=== PATIENT | female | born 1985 | race Two or more races ===

== ENCOUNTER 2018-07-19 13:59 | Emergency (ER) | payer MEDICAID, OTHER ==
[~2018-07-19] VITALS: Ht 160 cm; Wt 79.4 kg
[2018-07-19 14:23] VITALS: BP 128/83
[2018-07-19] MEDS ORDERED: IBUPROFEN 800 MG TAB PO ONE (16:15)
== END 2018-07-19 17:05 | disposition home or self-care (01) ==
LOC: ER 14:04
DX: S16.1XXA Strain of muscle, fascia and tendon at neck level, initial encounter (principal); S20.219A Contusion of unspecified front wall of thorax, initial encounter; V43.52XA Car driver injured in collision with other type car in traffic accident, initial encounter; Y93.89 Activity, other specified; Y92.488 Other paved roadways as the place of occurrence of the external cause; Y99.8 Other external cause status
CPT/HCPCS: 71046; 72040

== ENCOUNTER 2018-12-29 09:29 | Emergency (ER) | payer MEDICAID ==
[2018-12-29 09:36] VITALS: BP 112/70
[2018-12-29 10:33] LABS: Urine Bacteria NONE SEEN /hpf (None Seen); Urine Blood 1+ /uL (Negative); Urine Specific Gravity 1.019 (1.001-1.035); Urine WBC 2 /hpf (0 - 5)
== END 2018-12-29 12:28 | disposition left against medical advice (07) ==
LOC: ER 09:31
DX: R10.30 Lower abdominal pain, unspecified (principal); N93.9 Abnormal uterine and vaginal bleeding, unspecified; Z53.21 Procedure and treatment not carried out due to patient leaving prior to being seen by health care provider
CPT/HCPCS: 36415; 81001; 84702

== ENCOUNTER 2019-01-08 10:50 | Emergency (ER) | payer MEDICAID ==
[~2019-01-08] VITALS: Ht 157.5 cm; Wt 82.6 kg
[2019-01-08 11:51] LABS: Basophils # (auto) 0 uL; Basophils % (auto) 0.3 % (0.0-2.0); Eosinophils # (auto) 0.1 uL; Eosinophils % (auto) 2.4 % (0.0-7.0); Hematocrit 42.2 % (36.0-46.0); Lymphocytes # (auto) 1.9 uL; Lymphocytes % (auto) 32.3 % (10.0-50.0); Mean Corpuscular Hemoglobin 28.9 pg (28.0-32.0); Mean Corpuscular Hgb Conc. 33.2 g/dL (32.0-36.0); Mean Corpuscular Volume 87.1 fL (80.0-100.0); Monocytes # (auto) 0.3 uL; Monocytes % (auto) 4.9 % (0.0-12.0); Neutrophils # (auto) 3.5 uL; Neutrophils % (auto) 60.1 % (37.0-80.0); Nucleated Red Blood Cells % 0.1 %; Platelet Count (auto) 246 10^3/uL (140-450); Red Blood Cells 4.84 10^6/uL (4.0-5.20); Red Cell Distribution Width 13.3 % (11.8-14.3); White Blood Cell 5.8 10^3/uL (4.4-10.8)
[2019-01-08 12:08] LABS: Potassium 3.5 mmol/L (3.5-5.1)
[2019-01-08 12:15] LABS: Albumin 3.8 g/dL (3.4-5.0); BUN/Creatinine Ratio 14.9; Bilirubin, Total 0.3 mg/dL (0.2-1.0); Calcium 8.8 mg/dL (8.5-10.1); Total Protein 7.6 g/dL (6.4-8.2)
[2019-01-08 12:37] LABS: Urine Bacteria NONE SEEN /hpf (None Seen); Urine Blood 2+ /uL (Negative); Urine Specific Gravity 1.025 (1.001-1.035); Urine Sperm PRESENT /hpf (None Seen); Urine WBC 6 /hpf (0 - 5)
[2019-01-08] MEDS ORDERED: MORPHINE SULF INJ 2 MG/ML SYRINGE 1ML IV ONE (15:15)
[2019-01-08] MEDS ORDERED: ONDANSETRON HCL 4 MG/2 ML VIAL IV ONE (15:15)
[2019-01-08 16:48] VITALS: BP 110/61
== END 2019-01-08 17:17 | disposition home or self-care (01) ==
LOC: ER 10:56
DX: O03.9 Complete or unspecified spontaneous abortion without complication (principal); R79.89 Other specified abnormal findings of blood chemistry; Z3A.01 Less than 8 weeks gestation of pregnancy
CPT/HCPCS: 36415; 76801; 76817; 80053; 81001; 84702; 85025; 96374; 96375; 99284; J2270; J2405

== ENCOUNTER 2019-09-19 19:48 | Emergency (ER) | payer MEDICAID ==
[~2019-09-19] VITALS: Ht 160 cm; Wt 81.2 kg
[2019-09-19 20:42] LABS: Urine Bacteria FEW /hpf (None Seen); Urine Blood TRACE /uL (Negative); Urine Specific Gravity 1.018 (1.001-1.035); Urine WBC 2 /hpf (0 - 5)
[2019-09-19 22:43] LABS: Basophils # (auto) 0 10 ^3/uL (0-0.2); Basophils % (auto) 0.3 % (0.0-2.0); Eosinophils # (auto) 0.1 10 ^3/uL (0-0.8); Eosinophils % (auto) 1.4 % (0.0-7.0); Hematocrit 39.2 % (36.0-46.0); Hemoglobin 13.2 g/dL (12.2-16.2); Lymphocytes # (auto) 2.3 10 ^3/uL (0.4-5.4); Lymphocytes % (auto) 24.7 % (10.0-50.0); Mean Corpuscular Hemoglobin 29.3 pg (28.0-32.0); Mean Corpuscular Hgb Conc. 33.7 g/dL (32.0-36.0); Monocytes # (auto) 0.4 10 ^3/uL (0-1.3); Monocytes % (auto) 4.3 % (0.0-12.0); Neutrophils # (auto) 6.5 10 ^3/uL (1.6-8.6); Neutrophils % (auto) 69.3 % (37.0-80.0); Platelet Count (auto) 260 10^3/uL (140-450); Red Blood Cells 4.51 10^6/uL (4.0-5.20); Red Cell Distribution Width 13.6 % (11.8-14.3); White Blood Cell 9.3 10^3/uL (4.4-10.8)
[2019-09-19 23:00] LABS: Albumin 3.2 g/dL (3.4-5.0); BUN/Creatinine Ratio 17.2; Calcium 8.5 mg/dL (8.5-10.1)
[2019-09-19 23:03] LABS: Bilirubin, Total 0.3 mg/dL (0.2-1.0); Total Protein 7.5 g/dL (6.4-8.2)
[2019-09-20 03:00] VITALS: BP 93/47
== END 2019-09-20 03:52 | disposition home or self-care (01) ==
LOC: ER 19:48
DX: O20.0 Threatened abortion (principal); Z3A.10 10 weeks gestation of pregnancy
CPT/HCPCS: 36415; 76801; 80053; 81001; 84702; 85025

== ENCOUNTER 2019-10-16 17:48 | Emergency (ER) | payer MEDICAID ==
[~2019-10-16] VITALS: Ht 160 cm; Wt 82.1 kg
[2019-10-16 18:24] LABS: Basophils # (auto) 0 10 ^3/uL (0-0.2); Basophils % (auto) 0.3 % (0.0-2.0); Eosinophils # (auto) 0.1 10 ^3/uL (0-0.8); Eosinophils % (auto) 1.2 % (0.0-7.0); Hematocrit 35.5 % (36.0-46.0); Hemoglobin 12.2 g/dL (12.2-16.2); Lymphocytes % (auto) 25.9 % (10.0-50.0); Mean Corpuscular Hemoglobin 29.8 pg (28.0-32.0); Mean Corpuscular Hgb Conc. 34.5 g/dL (32.0-36.0); Mean Corpuscular Volume 86.2 fL (80.0-100.0); Monocytes # (auto) 0.4 10 ^3/uL (0-1.3); Monocytes % (auto) 4.7 % (0.0-12.0); Neutrophils # (auto) 5.4 10 ^3/uL (1.6-8.6); Neutrophils % (auto) 67.9 % (37.0-80.0); Platelet Count (auto) 235 10^3/uL (140-450); Red Blood Cells 4.11 10^6/uL (4.0-5.20); Red Cell Distribution Width 13.4 % (11.8-14.3); White Blood Cell 7.9 10^3/uL (4.4-10.8)
[2019-10-16 18:43] LABS: Albumin 2.9 g/dL (3.4-5.0); Calcium 8.3 mg/dL (8.5-10.1)
[2019-10-16] MEDS ORDERED: SODIUM CHLORIDE 0.9% 1,000 ML IV ONE (18:45)
[2019-10-16] MEDS ORDERED: PROMETHAZINE HCL 25 MG/ML 1ML IV ONE (18:45)
[2019-10-16 18:46] LABS: BUN/Creatinine Ratio 12.5; Bilirubin, Total 0.1 mg/dL (0.2-1.0); Total Protein 6.8 g/dL (6.4-8.2)
[2019-10-16 19:03] LABS: Urine Bacteria MOD /hpf (None Seen); Urine Blood Negative /uL (Negative); Urine Specific Gravity 1.005 (1.001-1.035); Urine WBC 1 /hpf (0 - 5)
[2019-10-16 19:04] LABS: Amylase 239 U/L (25-115); Lipase 921 U/L (73-393)
[2019-10-16] MEDS ORDERED: ACETAMINOPHEN 325 MG TAB PO ONE (20:45)
[2019-10-16 20:47] VITALS: BP 106/62
== END 2019-10-16 20:56 | disposition home or self-care (01) ==
LOC: ER 17:48
DX: O21.8 Other vomiting complicating pregnancy (principal); O26.891 Other specified pregnancy related conditions, first trimester; K85.90 Acute pancreatitis without necrosis or infection, unspecified; Z3A.14 14 weeks gestation of pregnancy
CPT/HCPCS: 36415; 76705; 80053; 81001; 82150; 83690; 84702; 85025; 96361; 96374; 99284; J2550; J7030

== ENCOUNTER 2019-10-21 10:29 | Emergency (ER) | payer MEDICAID ==
[~2019-10-21] VITALS: Ht 160 cm; Wt 82.1 kg
[2019-10-21 11:54] LABS: Urine Bacteria FEW /hpf (None Seen); Urine Blood 2+ /uL (Negative); Urine Mucus FEW (None Seen); Urine Specific Gravity 1.028 (1.001-1.035); Urine WBC 2 /hpf (0 - 5)
[2019-10-21 13:15] VITALS: BP 107/74
== END 2019-10-21 13:17 | disposition home or self-care (01) ==
LOC: ER 10:29
DX: O23.42 Unspecified infection of urinary tract in pregnancy, second trimester (principal); Z3A.15 15 weeks gestation of pregnancy
CPT/HCPCS: 36415; 76805; 81001; 84702

== ENCOUNTER 2020-03-03 22:13 | Observation (INO) | payer MEDICAID ==
[~2020-03-03] VITALS: Ht 0 cm
[2020-03-04] MEDS ORDERED: PREN-96 PO (01:52)
[2020-03-04] MEDS ORDERED: ACETAMINOPHEN 325 MG TAB PO ONE (02:00)
[2020-03-04] MEDS ORDERED: TERBUTALINE SULFATE 1 MG/ML 1ML VIAL SC ONE (03:30)
== END 2020-03-04 10:11 | disposition home or self-care (01) ==
LOC: LDRP 22:13
PROVIDERS: ADMIT Specialist; ATTEND Specialist
DX: O9A.213 Injury, poisoning and certain other consequences of external causes complicating pregnancy, third trimester (principal); O36.8130 Decreased fetal movements, third trimester, not applicable or unspecified; O46.93 Antepartum hemorrhage, unspecified, third trimester; O42.913 Preterm premature rupture of membranes, unspecified as to length of time between rupture and onset of labor, third trimester; O26.893 Other specified pregnancy related conditions, third trimester; R10.2 Pelvic and perineal pain; M54.5 Low back pain; O34.219 Maternal care for unspecified type scar from previous cesarean delivery; Z3A.35 35 weeks gestation of pregnancy; W18.39XA Other fall on same level, initial encounter; Y93.89 Activity, other specified; Y92.89 Other specified places as the place of occurrence of the external cause
CPT/HCPCS: 59025; 76818; 81002; 84112; 96372; G0378; J3105; Q0114

== ENCOUNTER 2020-03-22 05:37 | Inpatient (IN) | payer MEDICAID ==
[2020-03-22] VITALS (16 sets, daily range): BP systolic 123–160; BP diastolic 50–86
[~2020-03-22] VITALS: Ht 160 cm; Wt 90.7 kg
[~2020-03-22 05:37] MED LIST: PREN-96 PO
[2020-03-22] MEDS ORDERED: LACTATED RINGER'S 1,000 ML IV ONE (05:51)
[2020-03-22] MEDS ORDERED: LACTATED RINGER'S 1,000 ML IV SCH ×2 (05:51→10:06)
[2020-03-22] MEDS ORDERED: TERBUTALINE SULFATE 1 MG/ML 1ML VIAL SC ONE (06:01)
[2020-03-22 06:50] LABS: Basophils # (auto) 0 10 ^3/uL (0-0.2); Basophils % (auto) 0.2 % (0.0-2.0); Eosinophils # (auto) 0.1 10 ^3/uL (0-0.8); Eosinophils % (auto) 1.1 % (0.0-7.0); Hemoglobin 9.8 g/dL (12.2-16.2)
[2020-03-22 06:52] LABS: Hematocrit 31.5 % (36.0-46.0); Lymphocytes # (auto) 2.5 10 ^3/uL (0.4-5.4); Lymphocytes % (auto) 34.2 % (10.0-50.0); Mean Corpuscular Hemoglobin 24.1 pg (28.0-32.0); Mean Corpuscular Volume 77.8 fL (80.0-100.0); Monocytes # (auto) 0.4 10 ^3/uL (0-1.3); Monocytes % (auto) 5.2 % (0.0-12.0); Neutrophils # (auto) 4.3 10 ^3/uL (1.6-8.6); Neutrophils % (auto) 59.3 % (37.0-80.0); Nucleated Red Blood Cells % 0.2 %; Platelet Count (auto) 215 10^3/uL (140-450); Red Blood Cells 4.05 10^6/uL (4.0-5.20); Red Cell Distribution Width 17.6 % (11.8-14.3); White Blood Cell 7.3 10^3/uL (4.4-10.8)
[2020-03-22 07:02] LABS: Urine Bacteria NONE SEEN /hpf (None Seen); Urine Blood 3+ /uL (Negative); Urine Specific Gravity 1.014 (1.001-1.035); Urine WBC 21 /hpf (0 - 5)
[2020-03-22 07:08] LABS: Albumin 2.2 g/dL (3.4-5.0); Alcohol, Urine < 3.0 mg/dL (0-10); Amphetamine Screen, Urine NEGATIVE (NEGATIVE); Barbiturate Scree,Urine NEGATIVE (NEGATIVE); Benzodiazephine Screen, Urine NEGATIVE (NEGATIVE); Calcium 8.5 mg/dL (8.5-10.1); Cannabinoid Screen, Urine NEGATIVE (NEGATIVE); Cocaine Screen, Urine NEGATIVE (NEGATIVE); Opiate Scree,Urine NEGATIVE (NEGATIVE); Phencyclidine Screen, Urine NEGATIVE (NEGATIVE); Potassium 3.8 mmol/L (3.5-5.1)
[2020-03-22 07:11] LABS: BUN/Creatinine Ratio 18.2
[2020-03-22 07:13] LABS: Bilirubin, Total 0.2 mg/dL (0.2-1.0); Total Protein 6.2 g/dL (6.4-8.2)
[2020-03-22] MEDS ORDERED: ONDANSETRON HCL 4 MG/2 ML VIAL ONE (07:28)
[2020-03-22] MEDS ORDERED: SODIUM CHLORIDE LOCK 10 ML ONE (07:28)
[2020-03-22] MEDS ORDERED: MORPHINE SULF(PF) 0.5MG/ML 10ML VIAL ONE (07:28)
[2020-03-22] MEDS ORDERED: ROCURONIUM 10MG/ML 10ML VIAL IV ONE (07:28)
[2020-03-22] MEDS ORDERED: ceFAZolin 1GM VL ONE (07:28)
[2020-03-22] MEDS ORDERED: MIDAZOLAM HCL 1MG/1ML-2 ML VIAL ONE (07:28)
[2020-03-22] MEDS ORDERED: PROPOFOL 10 MG/ML 20 ML IV ONE (07:28)
[2020-03-22] MEDS ORDERED: fentaNYL CITRATE 100 MCG/2 ML VL ONE (07:28)
[2020-03-22] MEDS ORDERED: METOCLOPRAMIDE HCL 5MG/ml INJ 2ml VIAL ONE (07:28)
[2020-03-22] MEDS ORDERED: oxyTOCIN 10 UNIT/ML 10ML VIAL ONE (07:28)
[2020-03-22] MEDS ORDERED: EPINEPHrine HCL 1 MG/1 ML AMP ONE (07:51)
[2020-03-22] MEDS ORDERED: BUPIVACAINE/DEXTROSE MPF 0.75% 2 ML AMP IT ONE (07:51)
[2020-03-22] MEDS ORDERED: LIDOCAINE 1% HCL (LOCAL ANESTH.) INJ 20ML MDV ONE (07:53)
[2020-03-22] MEDS ORDERED: TETRACAINE 1% INJ 2 ML VIAL IJ ONE (07:53)
[2020-03-22] MEDS ORDERED: SUCCINYLCHOLINE CHLORIDE 20 MG/ML 10ML VIAL IV ONE (07:53)
[2020-03-22 08:17] LABS: INR 0.92 (0.9-1.15); Partial Thromboplastin Time 25.1 sec (23.0-31.2)
[2020-03-22] MEDS ORDERED: ePHEDrine SULFATE 50 MG/ML AMP ONE (09:03)
--- NOTE | 2020-03-22 10:03 | NUR ---
Post Op for LDRP: Received patient from PACU via bed to room 107. Patient A/A/Ox4, abdominal binder and bilateral SCD's are in place, IV fluids placed on pump and infusing per order, incisional site dressing clean/dry/intact and Hummel Catheter to gravity draining clear yellow urine. Incentive Spirometer at bedside and instruction on proper use with return demonstration done by patient. Continued care.
[2020-03-22] MEDS ORDERED: GUM (CHEWING) 1 GUM CHEW CHEW ONE (10:15)
[2020-03-22] MEDS ORDERED: ONDANSETRON HCL 4 MG/2 ML VIAL IV PRN (10:15)
[2020-03-22] MEDS ORDERED: NALOXONE HCL 0.4 MG/ML VIAL IV PRN (10:30)
[2020-03-22] MEDS ORDERED: HYDROmorphone HCL 2 MG/ML VL IV PRN (10:30)
[2020-03-22] MEDS ORDERED: METOCLOPRAMIDE HCL 5MG/ml INJ 2ml VIAL IV PRN (10:30)
[2020-03-22] MEDS ORDERED: diphenhdrAMINE HCL 50 MG/1 ML VL IV PRN (10:30)
[2020-03-22] MEDS ORDERED: KETOROLAC TROMETH 30 MG/ML 1ML VIAL IV ONE (10:30)
[2020-03-22] MEDS ORDERED: MORPHINE SULFATE 4 MG/ML SYR/VIAL IV PRN (10:30)
[2020-03-22] MEDS: KETOROLAC TROMETH 30 MG/ML 1ML VIAL IV PRN ×2 (12:52→23:52)
[2020-03-22] MEDS: ceFAZolin 1GM/50ML 50 ML IV SCH ×2 (14:25→22:09)
--- NOTE | 2020-03-22 17:30 | NUR ---
Sneha care Pericare done while patient in bed. Pad and gown changed. Lochia small and Fundus firm 1 finger breath below umbilicus. Patient tolerated well, continued care.
[2020-03-22] MEDS: ACETAMINOPHEN IV 1000 MG/100ML (10MG/ML) IV PRN (17:37)
[2020-03-22] MEDS: HYDROmorphone HCL 2 MG/ML VL IV PRN (22:08)
[2020-03-23] VITALS (11 sets, daily range): BP systolic 118–145; BP diastolic 68–83
--- NOTE | 2020-03-23 | NUR ---
Ambulation: Patient OOB with standby assistance by RN. Patient ambulated to bedside chair with steady gait. Pericare provided. Clean gown provided and bed linen changed. Patient ambulated back to bed with steady gait and no distress noted.
[2020-03-23] MEDS: HYDROmorphone HCL 2 MG/ML VL IV PRN ×2 (03:47→08:34)
--- NOTE | 2020-03-23 05:00 | NUR ---
Goode catheter dc'd Order to discontinue goode catheter. Goode dc'd with clean technique following deflation of balloon. Patient tolerated well with no complaints of pain. Continue care.
[2020-03-23] MEDS: ceFAZolin 1GM/50ML 50 ML IV SCH (05:42)
[2020-03-23 06:10] LABS: Basophils # (auto) 0 10 ^3/uL (0-0.2); Basophils % (auto) 0.3 % (0.0-2.0); Eosinophils # (auto) 0 10 ^3/uL (0-0.8); Eosinophils % (auto) 0.5 % (0.0-7.0); Hemoglobin 8.9 g/dL (12.2-16.2); Lymphocytes # (auto) 1.1 10 ^3/uL (0.4-5.4); Monocytes # (auto) 0.3 10 ^3/uL (0-1.3); Neutrophils # (auto) 6.2 10 ^3/uL (1.6-8.6); Nucleated Red Blood Cells % 0.1 %; White Blood Cell 7.7 10^3/uL (4.4-10.8)
[2020-03-23 06:12] LABS: Hematocrit 27.1 % (36.0-46.0); Lymphocytes % (auto) 14.8 % (10.0-50.0); Mean Corpuscular Hemoglobin 25.2 pg (28.0-32.0); Mean Corpuscular Hgb Conc. 32.8 g/dL (32.0-36.0); Mean Corpuscular Volume 76.7 fL (80.0-100.0); Monocytes % (auto) 4.5 % (0.0-12.0); Neutrophils % (auto) 79.9 % (37.0-80.0); Platelet Count (auto) 198 10^3/uL (140-450); Red Blood Cells 3.53 10^6/uL (4.0-5.20); Red Cell Distribution Width 17.6 % (11.8-14.3)
[2020-03-23] MEDS: ACETAMINOPHEN IV 1000 MG/100ML (10MG/ML) IV PRN (06:51)
[2020-03-23] MEDS ORDERED: HYDROcodone-ACET 5/325MG TAB PO PRN (09:30)
[2020-03-23] MEDS: DOCUSATE SOD 100 MG CAP PO SCH ×2 (10:40→23:25)
[2020-03-23] MEDS: HYDROcodone-ACET 5/325MG TAB PO PRN ×4 (10:40→23:25)
[2020-03-23] MEDS: SIMETHICONE 80 MG CHEWABLE TABLET PO PRN (10:41)
[2020-03-23] MEDS: IBUPROFEN 800 MG TAB PO PRN ×2 (12:31→22:02)
[2020-03-23] MEDS ORDERED: BISACODYL 10 MG RECT SUPP PR ONE (19:00)
[2020-03-24 03:00] VITALS: BP 125/84
[2020-03-24] MEDS: HYDROcodone-ACET 5/325MG TAB PO PRN ×4 (03:55→19:39)
[2020-03-24 05:07] LABS: RPR Non Reactive (Non Reactive)
[2020-03-24 07:00] VITALS: BP 137/81
[2020-03-24] MEDS: IBUPROFEN 800 MG TAB PO PRN ×3 (07:37→23:09)
[2020-03-24] MEDS: SIMETHICONE 80 MG CHEWABLE TABLET PO PRN ×2 (07:38→19:38)
[2020-03-24 11:00] VITALS: BP 135/81
[2020-03-24] MEDS: DOCUSATE SOD 100 MG CAP PO SCH ×2 (13:54→19:39)
[2020-03-24 15:00] VITALS: BP 134/69
[2020-03-24 19:00] VITALS: BP 129/79
[2020-03-24 23:00] VITALS: BP 134/77
[2020-03-25 03:10] VITALS: BP 137/77
[2020-03-25] MEDS: HYDROcodone-ACET 5/325MG TAB PO PRN (03:12)
[2020-03-25] MEDS: IBUPROFEN 800 MG TAB PO PRN (06:54)
[2020-03-25 07:15] VITALS: BP 129/78
[2020-03-25] MEDS ORDERED: TETANUS-DIPTH-ACEL PERTUSSIS 0.5ML SYR Tdap IM ONE (08:30)
--- NOTE | 2020-03-25 09:05 | NUR ---
Discharge: Discharge instructions given as ordered. Pt encouraged to follow up with NOTE KEEPER, Dr Brown at [facility] as scheduled on 03/29/2020 at 0900 am. All questions and concerns addressed. Patient verbalized understanding. Medication reconciliation completed and copy given to patient. Prescription for norco given. Patient up to date on all vaccines and copies of vaccinations given to patient. Patient encouraged to prepare to depart unit. All questions and concerns addressed.
--- NOTE | 2020-03-25 10:24 | NUR ---
Discharge: Patient taken to vehicle via ambulation with all personal belongings, accompanied by staff and family member. No distress noted at time of departure, no adverse changes in status since initial assessment.
== END 2020-03-25 13:55 | disposition home or self-care (01) | DRG 540 ==
LOC: OBSVTOIN 05:37 → LDRP 05:37
PROVIDERS: ADMIT Specialist; ATTEND Specialist
PROC: 0UL70CZ Occlusion of Bilateral Fallopian Tubes with Extraluminal Device, Open Approach (ICD-10-PCS; 2020-03-22)
PROC: 10D00Z1 Extraction of Products of Conception, Low, Open Approach (ICD-10-PCS; principal; 2020-03-22 08:40)
DX: O69.81X0 Labor and delivery complicated by cord around neck, without compression, not applicable or unspecified (principal); O60.23X0 Term delivery with preterm labor, third trimester, not applicable or unspecified; O34.211 Maternal care for low transverse scar from previous cesarean delivery; O99.02 Anemia complicating childbirth; D64.9 Anemia, unspecified; O99.214 Obesity complicating childbirth; E66.01 Morbid (severe) obesity due to excess calories; Z37.0 Single live birth; Z3A.37 37 weeks gestation of pregnancy; Z30.2 Encounter for sterilization; O99.62 Diseases of the digestive system complicating childbirth; K66.0 Peritoneal adhesions (postprocedural) (postinfection); Z20.828 Contact with and (suspected) exposure to other viral communicable diseases
CPT/HCPCS: 36415; 59025; 80053; 80307; 81001; 81002; 84112; 85025; 85610; 85730; 86592; 86850; 86900; 86901; 87426; 90715; 94762; 96360; 96361; 96365; 96366; 96374; G0378; J0131; J0171; J0330; J0690; J1885; J2001; J2250; J2405; J2590; J2704

== ENCOUNTER 2021-06-27 18:30 | Emergency (ER) | payer MEDICAID ==
[~2021-06-27] VITALS: Ht 157.5 cm; Wt 83.9 kg
[2021-06-27 18:43] VITALS: BP 115/77
== END 2021-06-27 21:20 | disposition left against medical advice (07) ==
LOC: ER 18:33
DX: R10.2 Pelvic and perineal pain (principal)

== ENCOUNTER 2022-06-19 16:24 | Emergency (ER) | payer MEDICAID ==
[~2022-06-19] VITALS: Ht 157.5 cm; Wt 80.4 kg
[2022-06-19 16:40] VITALS: BP 130/85
== END 2022-06-19 20:09 | disposition left against medical advice (07) ==
LOC: ER 16:24
DX: R10.13 Epigastric pain (principal); Z53.21 Procedure and treatment not carried out due to patient leaving prior to being seen by health care provider